=== PATIENT | male | born 1945 | race Caucasian/White ===

== ENCOUNTER 2018-03-24 15:55 | Inpatient (IN) | payer OTHER ==
[~2018-03-24] VITALS: Ht 185.4 cm; Wt 75.6 kg
[2018-03-24] MEDS ORDERED: IPRATROPIUM BROM 0.5 MG/2.5ML INH SOL NEB ONE (18:30)
[2018-03-24] MEDS ORDERED: ALBUTEROL SULF 2.5 MG/0.5ML(0.5%) NEB SOLN NEB ONE (18:30)
[2018-03-24] MEDS ORDERED: methylPREDNISolone SOD SUCC 125 MG/2 ML VL IV ONE (18:30)
[2018-03-24] MEDS ORDERED: SODIUM CHLORIDE 0.9% 1,000 ML IV SCH (18:52)
[2018-03-24] MEDS ORDERED: LACTULOSE 20Gm/30ML SOLN PO PRN (19:00)
[2018-03-24] MEDS ORDERED: MORPHINE SULFATE 8mg/ml INJ SDV IV PRN ×2 (19:00)
[2018-03-24] MEDS ORDERED: PROMETHAZINE HCL 25 MG/ML 1ML IV PRN (19:00)
[2018-03-24] MEDS ORDERED: ACETAMINOPHEN 500 MG TAB PO PRN (19:00)
[2018-03-24] MEDS ORDERED: NITROGLYCERIN 0.4 MG SL TAB SL PRN (19:00)
[2018-03-24] MEDS ORDERED: HYDROcodone-ACET 5/325MG TAB PO PRN (19:00)
[2018-03-24] MEDS ORDERED: ALBUTEROL SULF 2.5 MG/0.5ML(0.5%) NEB SOLN NEB PRN (19:00)
[2018-03-24] MEDS ORDERED: LORazepam 0.5 MG TAB PO PRN (19:00)
[2018-03-24 19:30] LABS: Basophils # (auto) 0 uL; Basophils % (auto) 0.5 % (0.0-2.0); Eosinophils # (auto) 0.1 uL; Hemoglobin 11.6 g/dL (13.5-17.5); Monocytes # (auto) 0.7 uL; Neutrophils # (auto) 6.4 uL; Red Blood Cells 4.21 10^6/uL (4.5-5.90)
[2018-03-24 19:32] LABS: Eosinophils % (auto) 1.2 % (0.0-7.0); Hematocrit 34.1 % (41.0-53.0); Lymphocytes # (auto) 1.2 uL; Lymphocytes % (auto) 14.2 % (10.0-50.0); Mean Corpuscular Hemoglobin 27.6 pg (28.0-32.0); Mean Corpuscular Hgb Conc. 34.1 g/dL (32.0-36.0); Monocytes % (auto) 8.7 % (0.0-12.0); Neutrophils % (auto) 75.4 % (37.0-80.0); Platelet Count (auto) 494 10^3/uL (140-450); Red Cell Distribution Width 13.8 % (11.8-14.3); White Blood Cell 8.5 10^3/uL (4.4-10.8)
[2018-03-24 19:40] LABS: INR 1.13 (0.9-1.15)
[2018-03-24] MEDS: MAGNESIUM SULFATE 1GM/100ML 100 ML IV SCH ×2 (19:42→22:17)
[2018-03-24 19:45] LABS: Albumin 2.6 g/dL (3.4-5.0); Anion Gap 12 (5-15); BUN/Creatinine Ratio 10.6; Blood Urea Nitrogen 7 mg/dL (7-18); Calcium 8.9 mg/dL (8.5-10.1); Carbon Dioxide 25 mmol/L (21-32); Chloride 94 mmol/L (98-107); GFR African American 153 mL/min; GFR Non-African American 127 mL/min; Glucose 110 mg/dL (74-106); Potassium 3.8 mmol/L (3.5-5.1); Sodium 131 mmol/L (136-145)
[2018-03-24 19:59] LABS: Alanine Aminotransferase 23 U/L (16-61); Alkaline Phosphatase 83 U/L (45-117); Aspartate Aminotransferase 17 U/L (15-37); Bilirubin, Total 0.5 mg/dL (0.2-1.0); Total Protein 7.9 g/dL (6.4-8.2)
[2018-03-24] MEDS ORDERED: IOHEXOL 300 MG/ML 100ML BOTTLE IJ ONE (20:19)
[2018-03-24 20:49] LABS: Urine Amorphous Crystal FEW /hpf (None Seen); Urine Bacteria FEW /hpf (None Seen); Urine Blood Negative /uL (Negative); Urine Mucus FEW (None Seen); Urine Specific Gravity 1.023 (1.001-1.035); Urine WBC 2 /hpf (0 - 3)
[2018-03-24] MEDS: TEMAZEPAM 15 MG CAP PO PRN (22:18)
[2018-03-24] MEDS ORDERED: cefTRIAXone 1GM/10ml IVPUSH 10 ML IV ONE (22:30)
[2018-03-24 22:38] VITALS: BP 144/79
[2018-03-24] MEDS ORDERED: AZITHROMYCIN 500MG/ 250ML 250 ML IV ONE (22:45)
[2018-03-24 22:59] VITALS: BP 144/79
[2018-03-24] MEDS: guaiFENesin-DM 100/10mg/5ml SYR PO PRN (23:16)
[2018-03-25] MEDS: ALBUTEROL SULF 2.5 MG/0.5ML(0.5%) NEB SOLN NEB SCH ×4 (00:31→19:16)
[2018-03-25] MEDS: IPRATROPIUM BROM 0.5 MG/2.5ML INH SOL NEB SCH ×4 (00:31→19:16)
[2018-03-25] MEDS ORDERED: ATOR10TA PO (02:27)
[2018-03-25] MEDS ORDERED: HYDR12.527 PO (02:27)
[2018-03-25] MEDS ORDERED: ASPI325T4 PO (02:27)
[2018-03-25] MEDS ORDERED: LISI-646 PO (02:27)
[2018-03-25] MEDS ORDERED: SERT-274 PO (02:27)
[2018-03-25] MEDS: guaiFENesin-DM 100/10mg/5ml SYR PO PRN ×2 (05:15→09:16)
[2018-03-25 05:35] VITALS: BP 119/75
[2018-03-25 09:00] VITALS: BP 129/81
[2018-03-25] MEDS ORDERED: cefTRIAXone 1GM/10ml IVPUSH 10 ML IV SCH (09:00)
[2018-03-25] MEDS: ENOXAPARIN SOD 40 MG/0.4 ML SYRINGE SC SCH (09:04)
[2018-03-25] MEDS ORDERED: AZITHROMYCIN 500MG/ 250ML 250 ML IV SCH (10:00)
[2018-03-25] MEDS ORDERED: PIPERACILLIN-TAZOB 3.375GM 100 ML IV ONE (12:15)
[2018-03-25 13:00] VITALS: BP 134/80
[2018-03-25] MEDS: SODIUM CHLORIDE 0.9% 1,000 ML IV SCH (13:04)
[2018-03-25 16:57] VITALS: BP 128/86
[2018-03-25] MEDS: PIPERACILLIN-TAZOB 3.375GM 100 ML IV SCH ×2 (17:36→23:45)
[2018-03-25 22:10] VITALS: BP 135/74
[2018-03-26] MEDS: SODIUM CHLORIDE 0.9% 1,000 ML IV SCH ×2 (04:55→21:35)
[2018-03-26 05:29] VITALS: BP 141/82
[2018-03-26] MEDS: ALBUTEROL SULF 2.5 MG/0.5ML(0.5%) NEB SOLN NEB SCH ×6 (05:48→23:44)
[2018-03-26] MEDS: IPRATROPIUM BROM 0.5 MG/2.5ML INH SOL NEB SCH ×6 (05:48→23:44)
[2018-03-26] MEDS: PIPERACILLIN-TAZOB 3.375GM 100 ML IV SCH ×4 (06:05→23:53)
[2018-03-26 07:20] LABS: Basophils # (auto) 0 uL; Basophils % (auto) 0.2 % (0.0-2.0); Eosinophils # (auto) 0 uL; Eosinophils % (auto) 0.6 % (0.0-7.0); Hematocrit 33.9 % (41.0-53.0); Hemoglobin 11.6 g/dL (13.5-17.5); Lymphocytes # (auto) 1.3 uL; Lymphocytes % (auto) 20.7 % (10.0-50.0); Mean Corpuscular Hemoglobin 28.1 pg (28.0-32.0); Mean Corpuscular Hgb Conc. 34.1 g/dL (32.0-36.0); Mean Corpuscular Volume 82.4 fL (80.0-100.0); Monocytes # (auto) 0.5 uL; Monocytes % (auto) 8.2 % (0.0-12.0); Neutrophils # (auto) 4.5 uL; Neutrophils % (auto) 70.3 % (37.0-80.0); Platelet Count (auto) 410 10^3/uL (140-450); Red Blood Cells 4.12 10^6/uL (4.5-5.90); Red Cell Distribution Width 13.8 % (11.8-14.3); White Blood Cell 6.3 10^3/uL (4.4-10.8)
[2018-03-26 07:33] LABS: BUN/Creatinine Ratio 7.5; Calcium 8.6 mg/dL (8.5-10.1); Magnesium 2.5 mg/dL (1.6-2.6)
[2018-03-26 08:00] VITALS: BP 122/75
[2018-03-26] MEDS: ENOXAPARIN SOD 40 MG/0.4 ML SYRINGE SC SCH (10:00)
[2018-03-26] MEDS: PANTOPRAZOLE 40 MG TAB PO SCH (10:00)
[2018-03-26] MEDS: SERTRALINE HCL 50 MG TAB PO SCH (10:01)
[2018-03-26 13:04] VITALS: BP 131/87
[2018-03-26 16:38] VITALS: BP 135/80
[2018-03-26 22:00] VITALS: BP 113/70
[2018-03-27] VITALS (7 sets, daily range): BP systolic 128–153; BP diastolic 75–97
[2018-03-27] MEDS: PIPERACILLIN-TAZOB 3.375GM 100 ML IV SCH ×4 (06:12→23:39)
[2018-03-27] MEDS: ALBUTEROL SULF 2.5 MG/0.5ML(0.5%) NEB SOLN NEB SCH ×4 (06:38→23:43)
[2018-03-27] MEDS: IPRATROPIUM BROM 0.5 MG/2.5ML INH SOL NEB SCH ×4 (06:38→23:43)
[2018-03-27] MEDS: SERTRALINE HCL 50 MG TAB PO SCH (09:43)
[2018-03-27] MEDS: PANTOPRAZOLE 40 MG TAB PO SCH (09:43)
[2018-03-27] MEDS: ENOXAPARIN SOD 40 MG/0.4 ML SYRINGE SC SCH (09:43)
[2018-03-27] MEDS ORDERED: AZITHROMYCIN 500MG/ 250ML 250 ML IV ONE (11:30)
[2018-03-27] MEDS ORDERED: VANCOMYCIN PER PHARMACY 0 MG IV SCH (11:30)
[2018-03-27] MEDS ORDERED: VANCOMYCIN 1GM/250ML 250 ML IV ONE (11:30)
[2018-03-27] MEDS: PROMETHAZINE W/CODEINE 5 ML ORAL SYRUP PO PRN ×3 (13:20→21:55)
[2018-03-27] MEDS: SODIUM CHLORIDE 0.9% 1,000 ML IV SCH (14:15)
[2018-03-28 04:43] VITALS: BP 134/79
[2018-03-28] MEDS: VANCOMYCIN 1GM/250ML 250 ML IV SCH ×2 (04:54→16:40)
[2018-03-28 05:54] LABS: Basophils # (auto) 0 uL; Basophils % (auto) 0.3 % (0.0-2.0); Eosinophils # (auto) 0.1 uL; Eosinophils % (auto) 0.9 % (0.0-7.0); Hematocrit 30.1 % (41.0-53.0); Hemoglobin 10.3 g/dL (13.5-17.5); Lymphocytes # (auto) 0.9 uL; Lymphocytes % (auto) 12.1 % (10.0-50.0); Mean Corpuscular Hemoglobin 28.1 pg (28.0-32.0); Mean Corpuscular Hgb Conc. 34.2 g/dL (32.0-36.0); Mean Corpuscular Volume 82.2 fL (80.0-100.0); Monocytes # (auto) 0.6 uL; Monocytes % (auto) 8.5 % (0.0-12.0); Neutrophils # (auto) 5.7 uL; Neutrophils % (auto) 78.2 % (37.0-80.0); Platelet Count (auto) 369 10^3/uL (140-450); Red Blood Cells 3.66 10^6/uL (4.5-5.90); Red Cell Distribution Width 13.9 % (11.8-14.3); White Blood Cell 7.3 10^3/uL (4.4-10.8)
[2018-03-28] MEDS: ALBUTEROL SULF 2.5 MG/0.5ML(0.5%) NEB SOLN NEB SCH ×3 (06:07→18:18)
[2018-03-28] MEDS: IPRATROPIUM BROM 0.5 MG/2.5ML INH SOL NEB SCH ×3 (06:07→18:18)
[2018-03-28 06:09] LABS: BUN/Creatinine Ratio 7.8; Potassium 3.3 mmol/L (3.5-5.1)
[2018-03-28 06:10] LABS: Calcium 8.6 mg/dL (8.5-10.1)
[2018-03-28] MEDS: SODIUM CHLORIDE 0.9% 1,000 ML IV SCH (06:21)
[2018-03-28] MEDS: PIPERACILLIN-TAZOB 3.375GM 100 ML IV SCH ×4 (06:21→23:44)
[2018-03-28] MEDS: PROMETHAZINE W/CODEINE 5 ML ORAL SYRUP PO PRN ×4 (06:31→22:00)
[2018-03-28 09:00] VITALS: BP 122/72
[2018-03-28] MEDS: AZITHROMYCIN 500MG/ 250ML 250 ML IV SCH (09:48)
[2018-03-28] MEDS: PANTOPRAZOLE 40 MG TAB PO SCH (09:48)
[2018-03-28] MEDS: SERTRALINE HCL 50 MG TAB PO SCH (09:48)
[2018-03-28] MEDS: ENOXAPARIN SOD 40 MG/0.4 ML SYRINGE SC SCH (09:48)
[2018-03-28 13:00] VITALS: BP 139/87
[2018-03-28] MEDS ORDERED: POTASSIUM CHL 20 Meq TABLET PO ONE (14:00)
[2018-03-28 17:00] VITALS: BP 146/84
[2018-03-28] MEDS: TEMAZEPAM 15 MG CAP PO PRN (22:00)
[2018-03-28 22:02] VITALS: BP 159/94
[2018-03-29] MEDS: ALBUTEROL SULF 2.5 MG/0.5ML(0.5%) NEB SOLN NEB SCH ×4 (00:36→18:16)
[2018-03-29] MEDS: IPRATROPIUM BROM 0.5 MG/2.5ML INH SOL NEB SCH ×4 (00:36→18:16)
[2018-03-29] MEDS: VANCOMYCIN 1GM/250ML 250 ML IV SCH ×2 (04:25→17:10)
[2018-03-29 04:55] VITALS: BP 114/74
[2018-03-29] MEDS: PIPERACILLIN-TAZOB 3.375GM 100 ML IV SCH ×4 (06:02→23:33)
[2018-03-29 06:37] LABS: Basophils # (auto) 0 uL; Basophils % (auto) 0.2 % (0.0-2.0); Eosinophils # (auto) 0.1 uL; Eosinophils % (auto) 1.1 % (0.0-7.0); Hematocrit 30.1 % (41.0-53.0); Hemoglobin 10.2 g/dL (13.5-17.5); Lymphocytes % (auto) 13.2 % (10.0-50.0); Mean Corpuscular Hemoglobin 27.8 pg (28.0-32.0); Mean Corpuscular Hgb Conc. 33.9 g/dL (32.0-36.0); Mean Corpuscular Volume 81.9 fL (80.0-100.0); Monocytes # (auto) 0.7 uL; Neutrophils % (auto) 76.5 % (37.0-80.0); Platelet Count (auto) 361 10^3/uL (140-450); Red Blood Cells 3.67 10^6/uL (4.5-5.90); Red Cell Distribution Width 14.2 % (11.8-14.3); White Blood Cell 7.9 10^3/uL (4.4-10.8)
[2018-03-29 06:54] LABS: Albumin 1.9 g/dL (3.4-5.0); BUN/Creatinine Ratio 8.3; Calcium 8.3 mg/dL (8.5-10.1); Potassium 3.4 mmol/L (3.5-5.1)
[2018-03-29 06:57] LABS: Bilirubin, Total 0.8 mg/dL (0.2-1.0); Total Protein 6.6 g/dL (6.4-8.2)
[2018-03-29 07:22] VITALS: BP 106/70
[2018-03-29] MEDS: ENOXAPARIN SOD 40 MG/0.4 ML SYRINGE SC SCH (10:00)
[2018-03-29] MEDS: PANTOPRAZOLE 40 MG TAB PO SCH (10:14)
[2018-03-29] MEDS: SERTRALINE HCL 50 MG TAB PO SCH (10:14)
[2018-03-29] MEDS: AZITHROMYCIN 500MG/ 250ML 250 ML IV SCH (10:19)
[2018-03-29] MEDS: PROMETHAZINE W/CODEINE 5 ML ORAL SYRUP PO PRN ×4 (10:27→22:33)
[2018-03-29 11:48] VITALS: BP 158/79
[2018-03-29] MEDS ORDERED: POTASSIUM CHL 20 Meq TABLET PO ONE (13:00)
[2018-03-29 16:00] VITALS: BP 119/79
[2018-03-29 22:00] VITALS: BP 123/69
[2018-03-29] MEDS: TEMAZEPAM 15 MG CAP PO PRN (22:33)
[2018-03-30] VITALS (7 sets, daily range): BP systolic 104–147; BP diastolic 62–78
[2018-03-30] MEDS: IPRATROPIUM BROM 0.5 MG/2.5ML INH SOL NEB SCH ×4 (00:39→19:18)
[2018-03-30] MEDS: ALBUTEROL SULF 2.5 MG/0.5ML(0.5%) NEB SOLN NEB SCH ×4 (00:39→19:18)
[2018-03-30] MEDS: VANCOMYCIN 1GM/250ML 250 ML IV SCH ×3 (01:00→18:55)
[2018-03-30] MEDS: PIPERACILLIN-TAZOB 3.375GM 100 ML IV SCH ×3 (05:48→18:10)
[2018-03-30 07:37] LABS: INR 1.09 (0.9-1.15); Partial Thromboplastin Time 30.1 sec (23.78-33.04); Prothrombin Time 11.6 sec (9.27-12.13)
[2018-03-30] MEDS ORDERED: LIDOCAINE 2% (LOCAL ANESTH.) PF 5ml SDV ONE (08:39)
[2018-03-30] MEDS ORDERED: MIDAZOLAM HCL 1MG/1ML-2 ML VIAL ONE (09:13)
[2018-03-30] MEDS ORDERED: fentaNYL CITRATE 100 MCG/2 ML VL ONE (09:13)
[2018-03-30] MEDS: SERTRALINE HCL 50 MG TAB PO SCH ×2 (09:27→10:50)
[2018-03-30] MEDS: AZITHROMYCIN 500MG/ 250ML 250 ML IV SCH ×2 (09:27→10:49)
[2018-03-30] MEDS: PANTOPRAZOLE 40 MG TAB PO SCH ×2 (09:27→10:50)
[2018-03-30] MEDS ORDERED: ENOXAPARIN SOD 60 MG/0.6 ML SYRINGE SC SCH (10:00)
[2018-03-30] MEDS: PROMETHAZINE W/CODEINE 5 ML ORAL SYRUP PO PRN (10:50)
[2018-03-31] VITALS (7 sets, daily range): BP systolic 113–135; BP diastolic 64–77
[2018-03-31] MEDS: PIPERACILLIN-TAZOB 3.375GM 100 ML IV SCH ×5 (00:35→23:31)
[2018-03-31] MEDS: IPRATROPIUM BROM 0.5 MG/2.5ML INH SOL NEB SCH ×4 (00:52→19:10)
[2018-03-31] MEDS: ALBUTEROL SULF 2.5 MG/0.5ML(0.5%) NEB SOLN NEB SCH ×4 (00:52→19:10)
[2018-03-31] MEDS: TEMAZEPAM 15 MG CAP PO PRN ×2 (02:04→23:43)
[2018-03-31] MEDS: VANCOMYCIN 1GM/250ML 250 ML IV SCH ×2 (05:09→15:32)
[2018-03-31 06:20] LABS: Basophils # (auto) 0 uL; Basophils % (auto) 0.4 % (0.0-2.0); Eosinophils # (auto) 0.1 uL; Eosinophils % (auto) 2.1 % (0.0-7.0); Hematocrit 29.5 % (41.0-53.0); Hemoglobin 10.1 g/dL (13.5-17.5); Lymphocytes # (auto) 0.8 uL; Lymphocytes % (auto) 13.8 % (10.0-50.0); Mean Corpuscular Hemoglobin 28.1 pg (28.0-32.0); Mean Corpuscular Hgb Conc. 34.4 g/dL (32.0-36.0); Mean Corpuscular Volume 81.8 fL (80.0-100.0); Monocytes # (auto) 0.5 uL; Monocytes % (auto) 9.3 % (0.0-12.0); Neutrophils # (auto) 4.4 uL; Neutrophils % (auto) 74.4 % (37.0-80.0); Platelet Count (auto) 335 10^3/uL (140-450); Red Cell Distribution Width 14.3 % (11.8-14.3); White Blood Cell 5.9 10^3/uL (4.4-10.8)
[2018-03-31 06:33] LABS: BUN/Creatinine Ratio 5.1; Calcium 8.8 mg/dL (8.5-10.1); Potassium 4.4 mmol/L (3.5-5.1)
[2018-03-31] MEDS: PANTOPRAZOLE 40 MG TAB PO SCH (10:06)
[2018-03-31] MEDS: SERTRALINE HCL 50 MG TAB PO SCH (10:06)
[2018-03-31] MEDS: AZITHROMYCIN 500MG/ 250ML 250 ML IV SCH (10:07)
[2018-04-01] VITALS (7 sets, daily range): BP systolic 113–139; BP diastolic 67–81
[2018-04-01] MEDS: ALBUTEROL SULF 2.5 MG/0.5ML(0.5%) NEB SOLN NEB SCH ×4 (00:36→19:30)
[2018-04-01] MEDS: IPRATROPIUM BROM 0.5 MG/2.5ML INH SOL NEB SCH ×4 (00:36→19:30)
[2018-04-01] MEDS: VANCOMYCIN 1GM/250ML 250 ML IV SCH ×3 (01:07→15:00)
[2018-04-01] MEDS: PIPERACILLIN-TAZOB 3.375GM 100 ML IV SCH ×3 (06:02→11:36)
[2018-04-01] MEDS: AZITHROMYCIN 500MG/ 250ML 250 ML IV SCH (10:14)
[2018-04-01] MEDS: PANTOPRAZOLE 40 MG TAB PO SCH (10:14)
[2018-04-01] MEDS: SERTRALINE HCL 50 MG TAB PO SCH (10:14)
[2018-04-01] MEDS ORDERED: MORPHINE SULFATE 8mg/ml INJ SDV IV PRN (12:15)
[2018-04-01] MEDS ORDERED: HYDROcodone-ACET 5/325MG TAB PO PRN (12:15)
[2018-04-01] MEDS ORDERED: LORazepam 0.5 MG TAB PO PRN (12:15)
[2018-04-02] VITALS (8 sets, daily range): BP systolic 131–144; BP diastolic 73–86
[2018-04-02] MEDS: PIPERACILLIN-TAZOB 3.375GM 100 ML IV SCH ×4 (00:19→17:49)
[2018-04-02] MEDS: TEMAZEPAM 15 MG CAP PO PRN ×2 (00:20→22:01)
[2018-04-02] MEDS: IPRATROPIUM BROM 0.5 MG/2.5ML INH SOL NEB SCH ×4 (00:45→20:03)
[2018-04-02] MEDS: ALBUTEROL SULF 2.5 MG/0.5ML(0.5%) NEB SOLN NEB SCH ×4 (00:46→20:03)
[2018-04-02] MEDS: VANCOMYCIN 1GM/250ML 250 ML IV SCH ×2 (03:00→14:44)
[2018-04-02 06:09] LABS: Basophils # (auto) 0 uL; Basophils % (auto) 0.5 % (0.0-2.0); Eosinophils # (auto) 0.1 uL; Eosinophils % (auto) 2.3 % (0.0-7.0); Hemoglobin 10.5 g/dL (13.5-17.5); Lymphocytes # (auto) 0.8 uL; Lymphocytes % (auto) 12.8 % (10.0-50.0); Mean Corpuscular Hemoglobin 27.5 pg (28.0-32.0); Mean Corpuscular Hgb Conc. 33.8 g/dL (32.0-36.0); Mean Corpuscular Volume 81.4 fL (80.0-100.0); Monocytes # (auto) 0.5 uL; Monocytes % (auto) 7.7 % (0.0-12.0); Neutrophils % (auto) 76.7 % (37.0-80.0); Platelet Count (auto) 368 10^3/uL (140-450); Red Blood Cells 3.81 10^6/uL (4.5-5.90); Red Cell Distribution Width 14.3 % (11.8-14.3); White Blood Cell 6.5 10^3/uL (4.4-10.8)
[2018-04-02 06:33] LABS: BUN/Creatinine Ratio 5.6; Calcium 8.9 mg/dL (8.5-10.1); Potassium 4.4 mmol/L (3.5-5.1)
[2018-04-02] MEDS: SERTRALINE HCL 50 MG TAB PO SCH (09:13)
[2018-04-02] MEDS: AZITHROMYCIN 500MG/ 250ML 250 ML IV SCH (09:13)
[2018-04-02] MEDS: PANTOPRAZOLE 40 MG TAB PO SCH (09:13)
[2018-04-02] MEDS: BOOST PLUS 8 ounce PO SCH (21:31)
[2018-04-03] VITALS (7 sets, daily range): BP systolic 126–138; BP diastolic 77–82
[2018-04-03] MEDS: PIPERACILLIN-TAZOB 3.375GM 100 ML IV SCH ×3 (00:10→17:39)
[2018-04-03] MEDS: ALBUTEROL SULF 2.5 MG/0.5ML(0.5%) NEB SOLN NEB SCH ×4 (01:49→18:18)
[2018-04-03] MEDS: IPRATROPIUM BROM 0.5 MG/2.5ML INH SOL NEB SCH ×4 (01:49→18:18)
[2018-04-03] MEDS: VANCOMYCIN 1GM/250ML 250 ML IV SCH ×2 (03:27→14:35)
[2018-04-03] MEDS: BOOST PLUS 8 ounce PO SCH ×3 (06:00→21:54)
[2018-04-03 06:48] LABS: Basophils # (auto) 0.1 uL; Basophils % (auto) 1.1 % (0.0-2.0); Eosinophils # (auto) 0.1 uL; Eosinophils % (auto) 2.7 % (0.0-7.0); Hematocrit 33.4 % (41.0-53.0); Hemoglobin 11.1 g/dL (13.5-17.5); Lymphocytes # (auto) 1.3 uL; Lymphocytes % (auto) 25.9 % (10.0-50.0); Mean Corpuscular Hemoglobin 28.2 pg (28.0-32.0); Mean Corpuscular Hgb Conc. 33.3 g/dL (32.0-36.0); Mean Corpuscular Volume 84.6 fL (80.0-100.0); Monocytes # (auto) 0.3 uL; Neutrophils # (auto) 3.2 uL; Neutrophils % (auto) 63.3 % (37.0-80.0); Nucleated Red Blood Cells % 0.1 %; Platelet Count (auto) 80 10^3/uL (140-450); Red Blood Cells 3.95 10^6/uL (4.5-5.90); Red Cell Distribution Width 14.2 % (11.8-14.3)
[2018-04-03 07:07] LABS: Albumin 2.2 g/dL (3.4-5.0); Bilirubin, Total 0.4 mg/dL (0.2-1.0); Calcium 8.6 mg/dL (8.5-10.1); Potassium 4.1 mmol/L (3.5-5.1); Total Protein 6.8 g/dL (6.4-8.2)
[2018-04-03] MEDS: PANTOPRAZOLE 40 MG TAB PO SCH (09:33)
[2018-04-03] MEDS: AZITHROMYCIN 500MG/ 250ML 250 ML IV SCH (09:33)
[2018-04-03] MEDS: SERTRALINE HCL 50 MG TAB PO SCH (09:33)
[2018-04-03] MEDS ORDERED: PIPERACILLIN-TAZOB 3.375GM 100 ML IV ONE (12:00)
[2018-04-04] MEDS: PIPERACILLIN-TAZOB 3.375GM 100 ML IV SCH ×5 (00:03→23:45)
[2018-04-04] MEDS: TEMAZEPAM 15 MG CAP PO PRN ×2 (00:04→23:07)
[2018-04-04] MEDS: ALBUTEROL SULF 2.5 MG/0.5ML(0.5%) NEB SOLN NEB SCH ×4 (00:38→19:50)
[2018-04-04] MEDS: IPRATROPIUM BROM 0.5 MG/2.5ML INH SOL NEB SCH ×4 (00:38→19:50)
[2018-04-04] MEDS ORDERED: VANCOMYCIN 1,250 MG in D5W 5% 250 ML IV SCH (03:00)
[2018-04-04 04:56] VITALS: BP 136/74
[2018-04-04] MEDS: BOOST PLUS 8 ounce PO SCH ×3 (06:18→23:03)
[2018-04-04 06:33] LABS: Basophils # (auto) 0 uL; Basophils % (auto) 0.8 % (0.0-2.0); Eosinophils # (auto) 0.2 uL; Eosinophils % (auto) 3.3 % (0.0-7.0); Hematocrit 31.2 % (41.0-53.0); Hemoglobin 10.3 g/dL (13.5-17.5); Lymphocytes % (auto) 17.2 % (10.0-50.0); Mean Corpuscular Hgb Conc. 33.1 g/dL (32.0-36.0); Mean Corpuscular Volume 81.5 fL (80.0-100.0); Monocytes # (auto) 0.4 uL; Monocytes % (auto) 7.4 % (0.0-12.0); Neutrophils # (auto) 4.1 uL; Neutrophils % (auto) 71.3 % (37.0-80.0); Nucleated Red Blood Cells % 0.1 %; Platelet Count (auto) 370 10^3/uL (140-450); Red Blood Cells 3.83 10^6/uL (4.5-5.90); Red Cell Distribution Width 14.6 % (11.8-14.3); White Blood Cell 5.7 10^3/uL (4.4-10.8)
[2018-04-04 06:49] LABS: Potassium 4.1 mmol/L (3.5-5.1)
[2018-04-04 06:53] LABS: Calcium 8.9 mg/dL (8.5-10.1)
[2018-04-04 06:56] LABS: Bilirubin, Total 0.5 mg/dL (0.2-1.0); Total Protein 7.3 g/dL (6.4-8.2)
[2018-04-04 08:50] VITALS: BP 126/77
[2018-04-04] MEDS: PANTOPRAZOLE 40 MG TAB PO SCH (10:05)
[2018-04-04] MEDS: SERTRALINE HCL 50 MG TAB PO SCH (10:06)
[2018-04-04] MEDS: AZITHROMYCIN 500MG/ 250ML 250 ML IV SCH (10:06)
[2018-04-04] MEDS ORDERED: DEXTROSE (50%) 50ML SYRG IV PRN (12:30)
[2018-04-04 13:11] VITALS: BP 128/78
[2018-04-04] MEDS: InsuLIN REG 1unit/0.01ml Soln (100units/ml) SC SCH ×2 (17:00→23:03)
[2018-04-04 17:01] VITALS: BP 123/74
[2018-04-04] MEDS: ACCU-CHEK COMFORT CURVE STRIP VI SCH ×2 (18:31→22:00)
[2018-04-04 20:00] VITALS: BP 122/72
[2018-04-04 21:14] VITALS: BP 122/72
[2018-04-05] VITALS (7 sets, daily range): BP systolic 117–138; BP diastolic 74–82
[2018-04-05] MEDS: ALBUTEROL SULF 2.5 MG/0.5ML(0.5%) NEB SOLN NEB SCH ×4 (01:18→19:30)
[2018-04-05] MEDS: IPRATROPIUM BROM 0.5 MG/2.5ML INH SOL NEB SCH ×4 (01:18→19:30)
[2018-04-05] MEDS: PIPERACILLIN-TAZOB 3.375GM 100 ML IV SCH ×3 (06:02→17:34)
[2018-04-05] MEDS: BOOST PLUS 8 ounce PO SCH ×3 (06:46→21:34)
[2018-04-05] MEDS: InsuLIN REG 1unit/0.01ml Soln (100units/ml) SC SCH ×4 (06:46→21:34)
[2018-04-05] MEDS: ACCU-CHEK COMFORT CURVE STRIP VI SCH ×4 (06:46→21:34)
[2018-04-05] MEDS: SERTRALINE HCL 50 MG TAB PO SCH (09:31)
[2018-04-05] MEDS: PANTOPRAZOLE 40 MG TAB PO SCH (09:31)
[2018-04-05] MEDS: AZITHROMYCIN 500MG/ 250ML 250 ML IV SCH (09:32)
[2018-04-05] MEDS ORDERED: PROMETHAZINE W/CODEINE 5 ML ORAL SYRUP PO PRN (14:30)
[2018-04-05] MEDS: TEMAZEPAM 15 MG CAP PO PRN (21:35)
[2018-04-06] MEDS: PIPERACILLIN-TAZOB 3.375GM 100 ML IV SCH ×4 (00:07→19:00)
[2018-04-06] MEDS: ALBUTEROL SULF 2.5 MG/0.5ML(0.5%) NEB SOLN NEB SCH ×5 (00:52→19:10)
[2018-04-06] MEDS: IPRATROPIUM BROM 0.5 MG/2.5ML INH SOL NEB SCH ×5 (00:52→19:09)
[2018-04-06 05:07] VITALS: BP 118/72
[2018-04-06] MEDS: InsuLIN REG 1unit/0.01ml Soln (100units/ml) SC SCH ×5 (06:19→21:02)
[2018-04-06] MEDS: ACCU-CHEK COMFORT CURVE STRIP VI SCH ×4 (06:20→21:03)
[2018-04-06] MEDS: BOOST PLUS 8 ounce PO SCH ×3 (06:20→21:02)
[2018-04-06 08:00] VITALS: BP 126/78
[2018-04-06 09:02] VITALS: BP 126/78
[2018-04-06] MEDS: AZITHROMYCIN 500MG/ 250ML 250 ML IV SCH (10:36)
[2018-04-06] MEDS: SERTRALINE HCL 50 MG TAB PO SCH (10:37)
[2018-04-06] MEDS: PANTOPRAZOLE 40 MG TAB PO SCH (10:37)
[2018-04-06] MEDS ORDERED: ACETAMINOPHEN 500 MG TAB PO PRN (12:00)
[2018-04-06] MEDS ORDERED: ALBUTEROL SULF 2.5 MG/0.5ML(0.5%) NEB SOLN NEB PRN (12:00)
[2018-04-06] MEDS ORDERED: LACTULOSE 20Gm/30ML SOLN PO PRN (12:00)
[2018-04-06 13:00] VITALS: BP 100/73
[2018-04-06 17:00] VITALS: BP 122/74
[2018-04-06 22:00] VITALS: BP 132/82
[2018-04-07] MEDS: PIPERACILLIN-TAZOB 3.375GM 100 ML IV SCH ×4 (00:30→17:28)
[2018-04-07] MEDS: TEMAZEPAM 15 MG CAP PO PRN (00:34)
[2018-04-07] MEDS: ALBUTEROL SULF 2.5 MG/0.5ML(0.5%) NEB SOLN NEB SCH ×4 (00:34→18:53)
[2018-04-07] MEDS: IPRATROPIUM BROM 0.5 MG/2.5ML INH SOL NEB SCH ×4 (00:34→18:53)
[2018-04-07 05:00] VITALS: BP 132/79
[2018-04-07] MEDS: InsuLIN REG 1unit/0.01ml Soln (100units/ml) SC SCH ×3 (06:23→17:00)
[2018-04-07] MEDS: ACCU-CHEK COMFORT CURVE STRIP VI SCH ×3 (06:23→17:00)
[2018-04-07] MEDS: BOOST PLUS 8 ounce PO SCH ×2 (06:24→14:00)
[2018-04-07 06:57] LABS: BUN/Creatinine Ratio 9.7; Calcium 9.3 mg/dL (8.5-10.1); Potassium 4.1 mmol/L (3.5-5.1)
[2018-04-07 07:08] LABS: Basophils # (auto) 0.1 uL; Basophils % (auto) 1.2 % (0.0-2.0); Eosinophils # (auto) 0.2 uL; Hematocrit 33.5 % (41.0-53.0); Hemoglobin 11.3 g/dL (13.5-17.5); Lymphocytes # (auto) 1.3 uL; Lymphocytes % (auto) 17.5 % (10.0-50.0); Mean Corpuscular Hemoglobin 27.7 pg (28.0-32.0); Mean Corpuscular Hgb Conc. 33.8 g/dL (32.0-36.0); Mean Corpuscular Volume 82.1 fL (80.0-100.0); Monocytes # (auto) 0.5 uL; Monocytes % (auto) 6.5 % (0.0-12.0); Neutrophils # (auto) 5.2 uL; Neutrophils % (auto) 71.8 % (37.0-80.0); Platelet Count (auto) 429 10^3/uL (140-450); Red Blood Cells 4.07 10^6/uL (4.5-5.90); Red Cell Distribution Width 14.4 % (11.8-14.3); White Blood Cell 7.3 10^3/uL (4.4-10.8)
[2018-04-07 08:00] VITALS: BP_SYST 130; BP_SYST 143; BP_DIAS 86; BP_DIAS 99
[2018-04-07] MEDS: PANTOPRAZOLE 40 MG TAB PO SCH (10:15)
[2018-04-07] MEDS: AZITHROMYCIN 500MG/ 250ML 250 ML IV SCH (10:15)
[2018-04-07] MEDS: SERTRALINE HCL 50 MG TAB PO SCH (10:16)
[2018-04-07 11:00] VITALS: BP 134/78
[2018-04-07] MEDS ORDERED: LEVO750T2 PO (13:05)
[2018-04-07] MEDS ORDERED: CLIN1CAP4 PO (13:05)
[2018-04-07] MEDS ORDERED: METF-370 PO (13:05)
[2018-04-07] MEDS ORDERED: SACC250C PO (13:05)
[2018-04-07 15:00] VITALS: BP 134/85
[2018-04-08] MEDS ORDERED: SERTRALINE HCL 50 MG TAB PO SCH (10:00)
[2018-04-08] MEDS ORDERED: AZITHROMYCIN 500MG/ 250ML 250 ML IV SCH (10:00)
[2018-04-08] MEDS ORDERED: PANTOPRAZOLE 40 MG TAB PO SCH (10:00)
== END 2018-04-07 20:43 | disposition home or self-care (01) | DRG 193 ==
LOC: EDSEX 15:55 → ER 15:55 → TELE 15:56 → TELE-WESTW 20:10 → WEST WING 23:34 → TELE-WESTW 03-25 00:25
PROVIDERS: ADMIT Internal Medicine; ATTEND Internal Medicine
PROC: 0B9N30Z Drainage of Right Pleura with Drainage Device, Percutaneous Approach (ICD-10-PCS; principal; 2018-03-30)
DX: J18.1 Lobar pneumonia, unspecified organism (principal); J96.01 Acute respiratory failure with hypoxia; J86.9 Pyothorax without fistula; J90 Pleural effusion, not elsewhere classified; E44.0 Moderate protein-calorie malnutrition; E87.1 Hypo-osmolality and hyponatremia; J44.0 Chronic obstructive pulmonary disease with (acute) lower respiratory infection; J44.1 Chronic obstructive pulmonary disease with (acute) exacerbation; I50.9 Heart failure, unspecified; I11.0 Hypertensive heart disease with heart failure; E78.5 Hyperlipidemia, unspecified; E87.6 Hypokalemia; K59.00 Constipation, unspecified; E11.9 Type 2 diabetes mellitus without complications; F32.9 Major depressive disorder, single episode, unspecified; F41.9 Anxiety disorder, unspecified; Z80.42 Family history of malignant neoplasm of prostate; Z82.49 Family history of ischemic heart disease and other diseases of the circulatory system; Z87.891 Personal history of nicotine dependence; Z90.79 Acquired absence of other genital organ(s); Z90.89 Acquired absence of other organs; Z79.899 Other long term (current) drug therapy; Z85.46 Personal history of malignant neoplasm of prostate; Z68.22 Body mass index [BMI] 22.0-22.9, adult
CPT/HCPCS: 10022; 36415; 71045; 71046; 71250; 71260; 76604; 77012; 80048; 80053; 80061; 80202; 81001; 82962; 83036; 83735; 83880; 83986; 84484; 85025; 85610; 85730; 86850; 86900; 86901; 87040; 87070; 87081; 87205; 89051; 93005; 93306; 93970; 94640; 96374; 97116; 97163; A4223; C1729; J1815; J2250; J2543; J7060